=== PATIENT | female | born 1950 | race Caucasian/White ===

== ENCOUNTER 2023-11-08 03:21 | Emergency (ER) | payer BC, OTHER ==
[2023-11-08] MEDS ORDERED: methylPREDNISolone Sodium Succinate 125 MG/2 ML SDV ONE (03:24)
[2023-11-08] MEDS: Albuterol/Ipratropium 3.0-0.5 MG/3 ML Neb Soln NEB ONE ×3 (03:26→03:45)
[2023-11-08] MEDS: Albuterol/Ipratropium 3.0-0.5 MG/3 ML Neb Soln ONE (03:26)
[2023-11-08] MEDS: Sodium Chloride 0.9% 10 ML Syringe FLUSH PRN (03:26)
[2023-11-08] MEDS: methylPREDNISolone Sodium Succinate 125 MG/2 ML SDV IVPUSH ONE (03:27)
[2023-11-08] MEDS ORDERED: Furosemide 40 MG/4 ML VIAL ONE (03:32)
[2023-11-08 03:33] LABS: BASOPHILS ABSOLUTE AUTO 0.05 K/uL (0.00-0.20); BASOPHILS PERCENT AUTO 0.6 % (0.0-2.0); EOSINOPHILS ABSOLUTE AUTO 0.52 K/uL (0.00-0.50); EOSINOPHILS PERCENT AUTO 6.7 % (0.0-5.0); HEMATOCRIT 35.1 % (34.0-46.0); HEMOGLOBIN 10.9 g/dL (11.7-15.5); LYMPHOCYTES ABSOLUTE AUTO 1.62 K/uL (0.50-3.50); LYMPHOCYTES PERCENT AUTO 20.9 % (10.0-50.0); MEAN CORPUSCULAR HEMOGLOBIN 28.9 pg (28.2-33.3); MEAN CORPUSCULAR HGB CONC 31.1 g/dL (31.7-36.0); MEAN CORPUSCULAR VOLUME 93.1 fL (84.0-98.0); MONOCYTES ABSOLUTE AUTO 0.66 K/uL (0.00-1.00); MONOCYTES PERCENT AUTO 8.5 % (2.0-14.0); NEUTROPHILS ABSOLUTE AUTO 4.89 K/uL (1.40-7.00); NEUTROPHILS PERCENT AUTO 63.3 % (45.0-80.0); PLATELET COUNT,PLT 256 K/uL (150-350); RED BLOOD CELL COUNT 3.77 M/uL (3.77-5.09); RED CELL DISTRIBUTION WIDTH 14.4 % (11.2-14.1); WHITE BLOOD CELL COUNT,WBC 7.7 K/uL (4.0-10.2)
[2023-11-08 03:34] LABS: O2 DELIVERY DEVICE CPAP
[2023-11-08 03:41] LABS: PCO2 VENOUS 61 mmHG (41-51); PH,VENOUS 7.35 (7.31-7.41); PO2 VENOUS 80 mmHG
[2023-11-08 03:42] LABS: BASE EXCESS VENOUS 6 mmol/L ((-2)-3); BICARBONATE,VENOUS 33 mmol/L (23-28); O2 SATURATION VENOUS 95 %
[2023-11-08 04:01] LABS: ALANINE AMINOTRANSFERASE,ALT 16 U/L (12-78); ALBUMIN 3.5 g/dL (3.4-5.0); ALKALINE PHOSPHATASE 105 IU/L (46-116); ANION GAP 7.8 meq/L (7-15); ASPARTATE AMNIOTRANSFERASE,AST 17 U/L (15-37); BILIRUBIN TOTAL 0.2 mg/dL (0.2-1.0); BLOOD UREA NITROGEN,BUN 15 mg/dL (7-18); CARBON DIOXIDE,CO2 37.2 mmol/L (21.0-32.0); CHLORIDE,CL 97 mmol/L (98-107); CREATININE 0.77 mg/dL (0.51-1.17); ESTIMATED GFR 81 mL/min (>=60); GLUCOSE RANDOM 129 mg/dL (70-99); MAGNESIUM 2.1 mg/dL (1.8-2.4); PRO B-TYPE NATRIUR PEPT,BNPPRO 385 pg/mL (0-125); PROTEIN TOTAL,TP 8.1 g/dL (6.4-8.2); SODIUM,NA 137 mmol/L (136-145)
[2023-11-08 04:08] LABS: PROTHROMBIN TIME 9.9 SEC (9.0-11.1)
== END 2023-11-08 05:00 ==
LOC: LL.ED 03:21
DX: J44.9 Chronic obstructive pulmonary disease, unspecified (principal); R06.03 Acute respiratory distress; Z88.8 Allergy status to other drugs, medicaments and biological substances; Z79.899 Other long term (current) drug therapy
CPT/HCPCS: 36415; 71045; 80053; 82803; 83605; 83735; 83880; 84484; 85025; 85379; 85610; 93005; 93010; 94640; 96374; 99284; 99285-25; J2919; J3490; J7620-GY